=== PATIENT | female | born 1990 | race Caucasian/White ===

== ENCOUNTER 2019-12-03 11:15 | Outpatient (CLI) | payer OTHER, SELFPAY ==
[2019-12-03] VITALS (19 sets, daily range): BP systolic 128–167; BP diastolic 62–100; PULSE 64–78; O2SAT 99–100
[2019-12-03 12:23] LABS: Basophils Percent Auto 0.2 % (0.2-1.2); Eosinophils Absolute Auto 0.1 K/mm3 (0-0.3); Eosinophils Percent Auto 1.2 % (0-4.4); Hematocrit 32.7 % (37.0-47.0); Hemoglobin 10.7 g/dL (12.0-15.0); Immature Granulocyte Absolute 0.04 K/mm3 (0.00-0.031); Immature Granulocyte Percent A 0.4 % (0-0.5); Lymphocytes Percent Auto 15.1 % (18.3-44.2); Mean Corpuscular HGB Conc 32.7 g/dl (32-36); Mean Corpuscular Hemoglobin 28.5 pg (26-34); Mean Corpuscular Volume 87.2 fl (80-100); Mean Platelet Volume 11.4 fl (7.4-10.4); Monocytes Absolute Auto 0.7 K/mm3 (0.1-0.6); Monocytes Percent Auto 7.7 % (2.6-8.5); Neutrophils Percent Auto 75.4 % (45.5-73.1); Platelet Count Result 220 k/mm3 (150-375); Red Blood Count 3.75 M/mm3 (4.2-5.4); Red Cell Distribution Width 14.4 % (11.5-14.5); White Blood Count 9.3 K/mm3 (4.5-10.0)
[2019-12-03 12:31] LABS: Add Urine Microscopic? YES; Appearance Urine Cloudy (Clear); Bacteria Urine Trace /hpf; Bilirubin Urine Negative (Negative); Blood Urine Negative (Negative); Color Urine Yellow (Yellow); Glucose Urine UA Negative (Negative); Ketones Urine Negative (Negative); Leukocyte Esterase Ur 1+ LEU/UL (NEGATIVE); Mucus Urine Rare /lpf; Nitrate Urine Negative (Negative); Protein Urine 1+ mg/dL (Negative); Specific Grav Ur 1.014 (1.001-1.035); Squamous Epithelial Cell Urine Many /hpf (Few); Urobilinogen Urine Negative mg/dL (<2.0)
[2019-12-03] MEDS: LABETALOL HCL 100 MG TABLET 200 MG PO (12:40)
[2019-12-03 12:42] LABS: Alanine Aminotransferase 17 U/L (4-35); Albumin Level 3.5 g/dL (3.5-5.1); Alkaline Phosphatase 75 U/L (38-126); Aspartate Amino Transferase 20 U/L (14-36); Bilirubin,Total 0.1 mg/dL (0.2-1.3); Blood Urea Nitrogen 9 mg/dL (7-17); Calcium 9.6 mg/dL (8.4-10.2); Carbon Dioxide 25 mmol/L (22-30); Chloride 104 mmol/L (98-107); Estimated Glomerular Filt Rate > 60; Glucose 91 mg/dL (65-105); Potassium 3.7 mmol/L (3.4-5.0); Sodium 137 mmol/L (137-145); Uric Acid 5.9 mg/dL (2.5-7.5)
--- NOTE | 2019-12-03 14:30 | PC.NURSE ---
called Dr. Arias updated BP. order received for discharge with increased Labetalol dose to 200 mg every 6 hours. follow up in one week.
--- NOTE | 2019-12-03 14:45 | PC.NURSE ---
discharge instruction given for precaution of preeclampsia and 24 urine collection. pt verbalized understanding.
[2019-12-03 14:56] LABS: Creatinine Urine 99.3 mg/dL; Total Protein Urine Random 13 mg/dL
--- NOTE | 2019-12-03 15:05 | PC.NURSE ---
Addendum entered by Nelida Long RN 12/03/19 15:07: below note was entered for 12/03/2019 at 1230 Original Note: called Dr Arias reported elevated BP. no symptoms of preeclampsia order received for labetalol.
--- NOTE | 2019-12-03 15:07 | PC.NURSE ---
Addendum entered by Nelida Long RN 12/03/19 15:09: below note was entered for 12/03/2019 at 1320 Original Note: called Dr. Arias reported PIH lab result and updated BP. continue to monitor BP for one more hour
== END 2019-12-03 14:45 | disposition home or self-care (01) ==
LOC: ANHOBOP 11:25 → ANHOBPP 11:27
PROVIDERS: Visit Provider Obstetrics & Gynecology
DX: O13.9 Gestational [pregnancy-induced] hypertension without significant proteinuria, unspecified trimester (principal)
CPT/HCPCS: 36415; 59025; 80053; 81001; 82570; 84156; 84550; 85025; 87077; 87086; 87088; 87186; 99199; A9270

== ENCOUNTER 2019-12-04 15:05 | Outpatient (CLI) | payer OTHER, SELFPAY ==
[2019-12-04 15:24] VITALS: BMI 51.0
[2019-12-04 16:12] LABS: Collection Time Urine 24 HOURS
[2019-12-04 16:17] LABS: Total Volume 24 Hour Urine 3000 ml
[2019-12-04 16:19] LABS: Specific Gravity Ur 1.009
[2019-12-04 16:45] LABS: Patient Weight 270 Lbs
[2019-12-06 11:46] LABS: Total Protein Urine 24 Hr 291 MG/DAY (28-141); Total Protein Urine Random 9.7 mg/dL (0.0-11.9)
== END 2019-12-04 15:06 | disposition home or self-care (01) ==
LOC: ANHOBOP 15:07
PROVIDERS: Visit Provider Obstetrics & Gynecology
DX: O13.9 Gestational [pregnancy-induced] hypertension without significant proteinuria, unspecified trimester (principal)
CPT/HCPCS: 81050; 82575; 84156

== ENCOUNTER 2019-12-17 13:46 | Inpatient (IN) | payer OTHER, SELFPAY ==
[2019-12-17] VITALS (33 sets, daily range): BP systolic 137–179; BP diastolic 68–110; PULSE 66–91; TEMP 37.3–37.8; BMI 50.8
[2019-12-17 15:10] LABS: Basophils Percent Auto 0.2 % (0.2-1.2); Eosinophils Absolute Auto 0.2 K/mm3 (0-0.3); Eosinophils Percent Auto 1.4 % (0-4.4); Hematocrit 33.6 % (37.0-47.0); Hemoglobin 11.1 g/dL (12.0-15.0); Immature Granulocyte Absolute 0.11 K/mm3 (0.00-0.031); Immature Granulocyte Percent A 1.1 % (0-0.5); Lymphocytes Absolute Auto 1.79 K/mm3 (0.9-3.2); Lymphocytes Percent Auto 17.2 % (18.3-44.2); Mean Corpuscular Hemoglobin 28.9 pg (26-34); Mean Corpuscular Volume 87.5 fl (80-100); Mean Platelet Volume 12.6 fl (7.4-10.4); Monocytes Absolute Auto 0.8 K/mm3 (0.1-0.6); Monocytes Percent Auto 7.5 % (2.6-8.5); Neutrophils Absolute Auto 7.6 K/mm3 (1.3-6.7); Neutrophils Percent Auto 72.6 % (45.5-73.1); Platelet Count Result 193 k/mm3 (150-375); Red Blood Count 3.84 M/mm3 (4.2-5.4); White Blood Count 10.4 K/mm3 (4.5-10.0)
[2019-12-17 15:13] LABS: Add Urine Microscopic? YES; Appearance Urine Clear (Clear); Bacteria Urine Trace /hpf; Bilirubin Urine Negative (Negative); Blood Urine Negative (Negative); Color Urine Straw (Yellow); Glucose Urine UA Negative (Negative); Ketones Urine Negative (Negative); Leukocyte Esterase Ur Trace LEU/UL (NEGATIVE); Nitrate Urine Negative (Negative); Protein Urine 1+ mg/dL (Negative); RBC Urine 0-2 /hpf (0-2); Squamous Epithelial Cell Urine Few /hpf (Few); Urobilinogen Urine Negative mg/dL (<2.0)
[2019-12-17 15:17] LABS: Creatinine Urine 34.6 mg/dL; Total Protein Urine Random 22 mg/dL
[2019-12-17 15:19] LABS: Alanine Aminotransferase 15 U/L (4-35); Albumin Level 3.7 g/dL (3.5-5.1); Alkaline Phosphatase 94 U/L (38-126); Aspartate Amino Transferase 21 U/L (14-36); Bilirubin,Total 0.3 mg/dL (0.2-1.3); Blood Urea Nitrogen 13 mg/dL (7-17); Carbon Dioxide 25 mmol/L (22-30); Chloride 103 mmol/L (98-107); Estimated Glomerular Filt Rate > 60; Glucose 80 mg/dL (65-105); Potassium 4.3 mmol/L (3.4-5.0); Sodium 134 mmol/L (137-145); Uric Acid 5.6 mg/dL (2.5-7.5)
[2019-12-17] MEDS: NIFEdipine 10 MG CAPSULE PO (16:05)
[2019-12-17] MEDS: LABETALOL HCL 100 MG TABLET 200 MG PO ×2 (16:14→21:57)
--- NOTE | 2019-12-17 16:56 | PCDIET ---
called Dr. Arias and reported protein creatinine ratio. order received for cervidil induction.
--- NOTE | 2019-12-17 16:59 | PC.NURSE ---
called Dr. Arias notified pt elevated BP. reported lab result. order received for medication and stay over for observation.
[2019-12-17 18:40] LABS: Glucose Point of Care 100 (65-105)
[2019-12-17] MEDS: DINOPROSTONE 10 MG VAG INSERT VAGINAL ×2 (18:52→22:26)
[2019-12-17] MEDS: ACETAMINOPHEN 500 MG TABLET 1000 MG PO (18:52)
[2019-12-17] MEDS: LACTATED RINGERS 1,000 ML 125 ML IV CONT (18:53)
[2019-12-17] MEDS: NIFEdipine 30 MG TAB.ER.24 PO (20:54)
[2019-12-17] MEDS: INSULIN HUMAN NPH (*BKC) 100 UNITS/ML 30 UNITS SUB-Q (21:58)
[2019-12-17 22:38] LABS: Amphetamine Screen Urine Negative (Negative); Barbiturate Screen Urine Negative (Negative); Benzodiazepines Screen Urine Negative (Negative); Cannabinoid Screen Urine Negative (Negative); Cocaine Screen Urine Negative (Negative); Methadone Screen Urine Negative (Negative); Opiate Screen Urine Negative (Negative); Phencyclidine Screen Urine Negative (Negative)
[2019-12-18] VITALS (183 sets, daily range): BP systolic 98–173; BP diastolic 28–118; PULSE 61–109; TEMP 36.7–37.3; O2SAT 94–100
[2019-12-18] MEDS: LABETALOL HCL 100 MG TABLET 200 MG PO ×4 (04:25→21:47)
[2019-12-18] MEDS: AMPICILLIN 2 GM/NS 100 ML 2 GM/100 ML BAG IVPB (04:25)
[2019-12-18] MEDS: ACETAMINOPHEN 325 MG TABLET 650 MG PO (05:25)
--- NOTE | 2019-12-18 06:15 | WPDANESEPP ---
Anes - Eval Pre Procedure Procedure: Labor epidural Date/Time: 12/18/19 06:15 Surgeon: sourav Preop Diagnosis: pain during labor Pre Op Diagnosis: Induction of Labor Patient Data Age: 29 Gender: F Height: 1.55 m Weight: 122 kg Last Vital Signs Temp 36.7 C 12/18/19 06:03 Pulse 77 12/18/19 04:26 BP 145/97 H 12/18/19 04:26 Allergies Allergy/AdvReac Type Severity Reaction Status Date / Time No Known Allergies Allergy Verified 12/17/19 16:03 Home Medications Medication Instructions Recorded Confirmed Type PNV cmb#95-ferrous fumarate-FA 1 tablet PO DAILY 12/17/19 12/17/19 History [] aspirin 81 mg PO DAILY 12/17/19 12/17/19 History calcium carbonate [Calcium 500] 500 mg PO DAILY 12/17/19 12/17/19 History ergocalciferol (vitamin D2) 50,000 unit 2XW 12/17/19 12/17/19 History [Vitamin D2] insulin NPH isoph U-100 human 4 unit SUBCUT DAILY 12/17/19 12/17/19 History [Novolin N NPH U-100 Insulin] labetalol 200 mg PO Q6H 12/17/19 12/17/19 History Laboratory Tests 12/17/19 12/17/19 12/17/19 14:52 14:52 14:53 WBC 10.4 K/mm3 H K/mm3 (4.5-10.0) RBC 3.84 M/mm3 L M/mm3 (4.2-5.4) Hgb 11.1 g/dL L g/dL (12.0-15.0) Hct 33.6 % L % (37.0-47.0) MCV 87.5 fl fl (80-100) MCH 28.9 pg pg (26-34) MCHC 33.0 g/dl g/dl (32-36) RDW 14.0 % % (11.5-14.5) Plt Count 193 k/mm3 k/mm3 (150-375) MPV 12.6 fl H fl (7.4-10.4) Immature Gran % (Auto) 1.1 % H % (0-0.5) Neut % (Auto) 72.6 % % (45.5-73.1) Lymph % (Auto) 17.2 % L % (18.3-44.2) [place] % (Auto) 7.5 % % (2.6-8.5) Eos % (Auto) 1.4 % % (0-4.4) Baso % (Auto) 0.2 % % (0.2-1.2) Lymph # (Auto) 1.79 K/mm3 K/mm3 (0.9-3.2) [place] # (Auto) 0.8 K/mm3 H K/mm3 (0.1-0.6) Eos # (Auto) 0.2 K/mm3 K/mm3 (0-0.3) Baso # (Auto) 0.0 K/mm3 K/mm3 (0.0-0.1) Abs Immat Gran (auto) 0.11 K/mm3 H K/mm3 (0.00-0.031) Absolute Neuts (auto) 7.6 K/mm3 H K/mm3 (1.3-6.7) Absolute Nucleated RBC 0.0 K/mm3 K/mm3 (0.0-0.012) Nucleated RBC % 0.0 % % (0.0-0.2) Sodium 134 mmol/L L mmol/L (137-145) Potassium 4.3 mmol/L mmol/L (3.4-5.0) Chloride 103 mmol/L mmol/L (98-107) Carbon Dioxide 25 mmol/L mmol/L (22-30) BUN 13 mg/dL mg/dL (7-17) Creatinine 0.80 mg/dL mg/dL (0.7-1.0) Estim Creat Clear Calc Not Reportable Estimated GFR > 60 (59 - ) Glucose 80 mg/dL mg/dL (65-105) POC Capillary Glucose Uric Acid 5.6 mg/dL mg/dL (2.5-7.5) Calcium 10.0 mg/dL mg/dL (8.4-10.2) Total Bilirubin 0.3 mg/dL mg/dL (0.2-1.3) AST 21 U/L U/L (14-36) ALT 15 U/L U/L (4-35) Alkaline Phosphatase 94 U/L U/L (38-126) Total Protein 7.0 g/dL g/dL (6.3-8.2) Albumin 3.7 g/dL g/dL (3.5-5.1) Urine Color Straw (Yellow) Urine Appearance Clear (Clear) Urine pH 9.0 (5.0-9.0) Ur Specific [place] 1.010 (1.001-1.035) Urine Protein 1+ mg/dL H mg/dL (Negative) Urine Glucose (UA) Negative mg/dL mg/dL (Negative) Urine Ketones Negative mg/dL mg/dL (Negative) Ur Blood (Man) Negative (Negative) Urine Nitrate Negative (Negative) Urine Bilirubin Negative (Negative) Urine Urobilinogen Negative mg/dL mg/dL (<2.0) Ur Leukocyte Esterase Trace MYLENE/UL H MYLENE/UL (NEGATIVE) Urine RBC 0-2 /hpf /hpf (0-2) Urine WBC 4-6 /hpf H /hpf (0-3) Ur Squamous Epith Cells Few /hpf /hpf (Few) Urine Bacteria Trace /hpf /hpf U Random Total Protein Urine Creatinine Urine Opiates S
[2019-12-18] MEDS: OXYTOCIN 30 UNITS/NS 500 ML 30 UNITS/500 ML BAG IV CONT (07:44)
[2019-12-18 07:52] LABS: Glucose Point of Care 69 (65-105)
[2019-12-18 07:53] LABS: Rapid Plasma Reagin Non-Reactive (NonReactive)
--- NOTE | 2019-12-18 08:23 | WPDOBADMIT ---
Obstetrics - Admit Note Admission Note: Patient sent to Labor and delivery with BP of 200/ 110. On arrival, bps ranged from 150-170s/90-110 patient recevied Procardia 10 mg po x 1 with improvement of BPs PIH labs normal. 24 hour urine 291 two weeks ago and protein creatinine ratio 0.68 with poor Ob history. Proceed with IOL s/p cervidil and AROM clear fluid. vertex. record reviewed. No pertinent additions to the history and/or any subsequent changes in the physical findings that are not consistent with the expected course of the were found. Additions to the history and/or subsequent changes in the physical findings follow. None.
[2019-12-18] MEDS: NIFEdipine 30 MG TAB.ER.24 PO ×2 (09:00→20:56)
[2019-12-18] MEDS: AMPICILLIN 1 GM/NS 50 ML 1 GM/50 ML BAG IVPB ×4 (09:00→17:47)
[2019-12-18 12:06] LABS: Glucose Point of Care 76 (65-105)
[2019-12-18] MEDS: LACTATED RINGERS 1,000 ML 125 ML IV CONT (12:35)
[2019-12-18] MEDS: SODIUM CHLORIDE 0.9% IV 300 ML 600 ML I-UTERINE (14:54)
[2019-12-18 15:41] LABS: Glucose Point of Care 71 (65-105)
[2019-12-18 17:51] LABS: Glucose Point of Care 65 (65-105)
--- NOTE | 2019-12-18 19:47 | PM.OBPRVD ---
OB - Delivery Note Procedure Delivery date: 12/18/19 events: Gestational Diabetes, Pre-Eclampsia (CHTN) and Labor Induction Intrapartal events: None Induction method: other (cervidil) Delivery monitor: internal FHT and internal uterine Route of delivery: Episiotomy description: None Laceration description: None Specimen: Yes (cord blood, gases, placenta) Estimated blood loss (mL): 150 Anesthesia type: Epidural Disposition: floor Complications: None Baby Weeks of gestation at delivery: 36 Weight (pounds): 5 Weight (ounces): 4 cord vessel description: 3 Vessels and Nuchal Cord (x 1) score one minute: 8 score five minutes: 8
[2019-12-18 19:53] LABS: Glucose Point of Care 80 (65-105)
[2019-12-18] MEDS: MISOPROSTOL 200 MCG TABLET 1000 MCG (20:03)
[2019-12-18] MEDS: SODIUM CHLORIDE 0.9% IV 1,000 ML 150 ML I-UTERINE (20:04)
[2019-12-18] MEDS: OXYTOCIN 30 UNITS/NS 500 ML 30 UNITS/500 ML BAG 125 UNITS IV CONT (20:08)
[2019-12-18] MEDS: IBUPROFEN 600 MG TABLET PO (21:28)
[2019-12-18] MEDS: BENZOCAINE 20% AER SPR (*SP) 56 GM CAN 1 SPRAY TOPICAL (21:29)
[2019-12-18] MEDS: WITCH HAZEL 40 PADS 1 PAD TOPICAL (21:29)
--- NOTE | 2019-12-18 22:07 | OBPPTRN ---
Patient transferred to post room # via ( ). Support person present. Oriented to unit, room, information board, rooming in, admission packet and security measures. Patient verbalizes understanding.
--- NOTE | 2019-12-18 22:07 | OBPPTRN ---
Patient transferred to post room #281 via wheelchair - did not come up with patient due to being in level 2 care. Support person present. Oriented to unit, room, information board, rooming in, admission packet and security measures. Patient verbalizes understanding.
[2019-12-19] VITALS (8 sets, daily range): BP systolic 113–140; BP diastolic 64–87; PULSE 68–88; RESP 18; TEMP 36.8–37.2; O2SAT 98
[2019-12-19] MEDS: LABETALOL HCL 100 MG TABLET 200 MG PO ×4 (04:16→23:58)
[2019-12-19 05:24] LABS: Hematocrit 30.8 % (37.0-47.0); Hemoglobin 10.2 g/dL (12.0-15.0)
[2019-12-19] MEDS: NIFEdipine 30 MG TAB.ER.24 PO ×2 (10:05→21:17)
--- NOTE | 2019-12-19 12:24 | PM.OBPNVD ---
OB - PN: Subj Subjective Date/time seen: 12/19/19 12:24 doing okay no complaints baby at [facility] OB - PN: Obj Data Labs CBC & Chem 7: 12/19/19 04:26 12/17/19 14:52 Labs: Laboratory Results - last 24 hr 12/18/19 12/18/19 12/18/19 15:38 17:46 19:27 Hgb Hct POC Capillary Glucose 71 65 80 12/19/19 04:26 Hgb 10.2 L Hct 30.8 L POC Capillary Glucose OB - PN A/P Assessment and Plan (1) Gestational diabetes: Code(s): O24.419 - Gestational diabetes mellitus in , unspecified control Status: Acute (2) Morbid obesity with BMI of 50.0-59.9, adult: Code(s): E66.01 - Morbid (severe) obesity due to excess calories; Z68.43 - Body mass index (BMI) 50.0-59.9, adult Status: Acute (3) (normal spontaneous vaginal delivery): Code(s): O80 - Encounter for full-term uncomplicated delivery Status: Acute (4) Chronic hypertension with superimposed pre-eclampsia: Code(s): O11.9 - Pre-existing hypertension with pre-eclampsia, unspecified trimester Status: Acute Assessment and Plan: desires tubal ligation. continue with pp care. Time Spent With Patient Time: Total time spent is greater than 50% in coordination of care (as documented) at patient's floor/unit and/or counseling patient:
[2019-12-19] MEDS: IBUPROFEN 600 MG TABLET PO (12:53)
[2019-12-20] VITALS (11 sets, daily range): BP systolic 120–140; BP diastolic 72–98; PULSE 69–81; RESP 16–22; TEMP 36.1–37.5; O2SAT 95–100
[2019-12-20] MEDS: LABETALOL HCL 100 MG TABLET 200 MG PO ×3 (04:44→16:21)
[2019-12-20] MEDS: NIFEdipine 30 MG TAB.ER.24 PO (10:02)
--- NOTE | 2019-12-20 12:00 | PC.NURSE ---
Patient received instructions on viewing the discharge video Mother & Baby Care, The First Two Weeks online. Patient was given the opportunity and encouraged to ask questions. Patient verbalized understanding of information shared and has been given the mother/baby guide for home reference.
--- NOTE | 2019-12-20 13:01 | PC.NURSE ---
Patient to pre-op per bed for tubal ligation.
--- NOTE | 2019-12-20 13:23 | WPDANESEPPF ---
Anes - Initial Pre Proc Eval Procedure: Operation Date: 12/20/19 14:30 Proposed Procedures p Post- Tubal Ligation - Alireza Arias MD Date/Time: 12/20/19 13:23 Surgeon: Alireza Arias MD Pre Op Diagnosis: Induction of Labor Patient Data Age: 29 Gender: F Height: 5 ft 1 in Weight: 122 kg Last Vital Signs Temp 37.5 C 12/20/19 13:17 Pulse 72 12/20/19 13:17 Resp 16 12/20/19 13:17 BP 129/83 12/20/19 13:17 Pulse Ox 100 12/20/19 13:17 Allergies Allergy/AdvReac Type Severity Reaction Status Date / Time No Known Allergies Allergy Verified 12/17/19 16:03 Home Medications Medication Instructions Recorded Confirmed Type PNV cmb#95-ferrous fumarate-FA 1 tablet PO DAILY 12/17/19 12/17/19 History [] aspirin 81 mg PO DAILY 12/17/19 12/17/19 History calcium carbonate [Calcium 500] 500 mg PO DAILY 12/17/19 12/17/19 History ergocalciferol (vitamin D2) 50,000 unit 2XW 12/17/19 12/17/19 History [Vitamin D2] insulin NPH isoph U-100 human 4 unit SUBCUT DAILY 12/17/19 12/17/19 History [Novolin N NPH U-100 Insulin] labetalol 200 mg PO Q6H 12/17/19 12/17/19 History Patient hx anesthesia problems: none Family hx anesthesia problems: none PMFSH Past Medical History Medical History Chronic hypertension with superimposed pre-eclampsia Gestational diabetes HTN (hypertension) Morbid obesity with BMI of 50.0-59.9, adult (normal spontaneous vaginal delivery) Preeclampsia Spontaneous Surgical History Surgical History Hx of appendectomy Hx of cholecystectomy Family History Family History Father No problems noted. Grandparent No problems noted. Grandparent Breast cancer Factor 5 Leiden mutation, heterozygous Hypertension Social History Social History Smoking status: Never smoker Tobacco type: cigarettes Second hand tobacco smoke exposure: Yes Substance use: former Spiritual care concerns: No Anes - Eval Final PreProcedure Day of Procedure 12/20/19 13:23 Patient weight: super morbidly obese Heart: regular rate and rhythm Lungs: clear to auscultation Airway: Mallampati scale class 1 Neurological: alert and oriented Last oral intake: >/= 8 hours ASA classification: III Emergent: no Anesthetic plan: proceed Anesthesia type and monitoring: general ETT and standard monitoring Informed Consent: The patient's anesthetic plan and its attendant risks and benefits were discussed with the patient/family/POA. Questions were solicited and answers provided to the satisfaction of the patient/family/POA.
[2019-12-20] MEDS: LACTATED RINGERS 1,000 ML 30 ML IV CONT (13:24)
--- NOTE | 2019-12-20 13:51 | PM.IMHP ---
H&P: HPI History of Present Illness Chief complaint: Induction of Labor Narrative: Ju Abraham is a 29 year old female s/p desires permanent sterilization. [facility] Past Medical History Medical History Chronic hypertension with superimposed pre-eclampsia Gestational diabetes HTN (hypertension) Morbid obesity with BMI of 50.0-59.9, adult (normal spontaneous vaginal delivery) Preeclampsia Spontaneous Surgical History Surgical History Hx of appendectomy Hx of cholecystectomy Family History Family History Father No problems noted. Grandparent No problems noted. Grandparent Breast cancer Factor 5 Leiden mutation, heterozygous Hypertension Social History Social History Smoking status: Never smoker Tobacco type: cigarettes Second hand tobacco smoke exposure: Yes Substance use: former Spiritual care concerns: No Meds Home Medications and Allergies Home Medications Medication Instructions Recorded Confirmed Type PNV cmb#95-ferrous fumarate-FA 1 tablet PO DAILY 12/17/19 12/17/19 History [] aspirin 81 mg PO DAILY 12/17/19 12/17/19 History calcium carbonate [Calcium 500] 500 mg PO DAILY 12/17/19 12/17/19 History ergocalciferol (vitamin D2) 50,000 unit 2XW 12/17/19 12/17/19 History [Vitamin D2] insulin NPH isoph U-100 human 4 unit SUBCUT DAILY 12/17/19 12/17/19 History [Novolin N NPH U-100 Insulin] labetalol 200 mg PO Q6H 12/17/19 12/17/19 History Allergies Allergy/AdvReac Type Severity Reaction Status Date / Time No Known Allergies Allergy Verified 12/17/19 16:03 Vital Signs Vital Signs - 24 hr 12/19/19 17:41 12/19/19 19:20 12/19/19 23:58 Temperature 36.8 C Pulse Rate 78 72 71 Respiratory Rate 18 Blood Pressure 140/82 127/74 Pulse Oximetry 12/20/19 00:00 12/20/19 04:44 12/20/19 04:47 Temperature Pulse Rate 79 Respiratory Rate Blood Pressure 135/80 139/98 H Pulse Oximetry 12/20/19 08:05 12/20/19 13:17 Temperature 37.0 C 37.5 C Pulse Rate 80 72 Respiratory Rate 16 16 Blood Pressure 130/87 129/83 Pulse Oximetry 98 100 Exam Resp: Effort & Inspection: normal respiratory effort GI: Inspection: normal to inspection and Pannus present : Other: ff below umbilicus Assessment and Plan Assessment and plan (1) Sterilization: Code(s): Z30.2 - Encounter for sterilization Status: Acute Assessment and Plan: scheduled for a tubal ligation. desires permanent sterilization. Risk and benefits reviewed in detail including failure rate.
--- NOTE | 2019-12-20 16:05 | PC.NURSE ---
Pt returned to floor from PACU per bed.
[2019-12-20] MEDS: IBUPROFEN 600 MG TABLET PO (16:22)
[2019-12-21 08:26] VITALS: BP 136/77; PULSE 69; RESP 22; TEMP 36.9
--- NOTE | 2019-12-21 23:49 | OP_ITS ---
DATE OF PROCEDURE: 12/20/2019 PREOPERATIVE DIAGNOSIS: Desires permanent sterilization. POSTOPERATIVE DIAGNOSIS: Desires permanent sterilization. PROCEDURE PERFORMED: tubal ligation. ANESTHESIA: Spinal. COMPLICATIONS: None. ESTIMATED BLOOD LOSS: 10 cc. FINDINGS: Grossly normal tubes. DESCRIPTION OF PROCEDURE: The patient was taken to operating room, placed in a supine position. Prepped and draped in normal sterile fashion. An abdominal incision was made approximately 3 cm, carried down to the underlying layer of fascia. The fascial incision was then extended bilaterally entering the fascia and peritoneum. [place] retractors were used to check bowel from the fallopian tube. The right fallopian tube was grasped with [place]'s and carried through to the fimbriated end and transected and suture ligated with 0 chromic suture. Attention was then turned to the left tube, which was transected and suture ligated with a chromic suture. Hemostasis was assured. The fascia was then closed with 0-Vicryl suture in a running fashion. Subcutaneous tissue was irrigated. Hemostasis was assured. Skin was closed with 4-0 Vicryl with subcutaneous stitch. This patient tolerated the procedure well. Sponge, lap, and needle counts were correct x2. D I MT: Ursula
--- NOTE | 2020-01-01 09:59 | PM.OBDSVD ---
DS: Admitting Diagnosis Admitting Diagnosis Admitting Diagnosis: Encounter for supervision of normal , unspecified, third trimester DS: Discharge Diagnosis Discharge Diagnosis (1) Sterilization: Code(s): Z30.2 - Encounter for sterilization Status: Acute (2) Chronic hypertension with superimposed pre-eclampsia: Code(s): O11.9 - Pre-existing hypertension with pre-eclampsia, unspecified trimester Status: Acute (3) (normal spontaneous vaginal delivery): Code(s): O80 - Encounter for full-term uncomplicated delivery Status: Acute (4) Gestational diabetes: Code(s): O24.419 - Gestational diabetes mellitus in , unspecified control Status: Acute (5) Morbid obesity with BMI of 50.0-59.9, adult: Code(s): E66.01 - Morbid (severe) obesity due to excess calories; Z68.43 - Body mass index (BMI) 50.0-59.9, adult Status: Acute OB - DS: Summary OB Procedures : NST OB Procedures Intrapartum: Spontaneous Vag Delivery OB Procedures: : P.P. tubal ligation Peripartum Data Procedures: Procedures Operation Date: 12/20/19 14:30 Actual Procedures Side Surgeon p Post- Tubal Ligation Bilateral Alireza Arias MD Time Spent with Patient Time attestation: Total time spent providing and/or coordinating discharge services: Exam GI: Inspection: incision and Pannus present GI Palp: Yes Soft to palpation DS: Data Data Completed and Pending Completed studies during hospitalization: Pending at discharge 12/18/19 19:40 Surgical [PTH] Routine 12/20/19 14:44 Surgical [PTH] Routine Surgical [PTH] Routine Discharge Plan Discharge Attending physician on discharge: Alireza Arias Consulting providers: Jac Velásquez Discharging Clinician: Alireza Arias Patient Disposition: Home, Self-Care Activity: may shower, may drive after 2 weeks and pelvic rest Diet: regular Discharge Instructions: Education: Mom and Baby Guide and Preeclampsia Handout Given to: Mother Follow-Up: Call your delivering provider's office for an appointment. Mom should come to the [facility] for the follow-up appointment. Appointment Date/Time: December 21, 2019 at 8:30 am What to expect at your follow-up visit: Blood Pressure Check, Physical Assessment Call [phone] if you are unable to keep your appointment time. BREAST CARE: 1. Wear a snug supportive bra. 2. For engorgement discomfort: Bottle Feeding: A. May apply ice packs ABDOMINAL INCISION: (if applicable) 1. Allow incision to air dry 2. Do NOT use lotions for powders on your incision 3. When showering, allow soap and water to run over the incision, but do not wash incision EPISIOTOMY/PERINEAL CARE: 1. Until bleeding stops, use your aleja bottle after urinating 2. Change your pad frequently throughout the day 3. You may take sitz baths several times a day (fill your bathtub with warm water and soak for 20 minutes.) Do NOT bathe in the water 4. No tub baths until seen by your physician - You may shower ACTIVITY: 1. Rest as much as possible. 2. Do not exercise or lift anything heavier than your baby (such as laundry or other children.) 3. Avoid stairs or driving as much as possible. 4. Do not put anything into the vagina. No douching, tampons, or sexual activity until seen by physician. NOTIFY PHYSICIAN IF YOU HAVE ANY QUESTIONS OR IF ANY OF THE FOLLOWING SYMPTOMS OCCUR: 1. If your incision becomes red, swollen, or more painful than what you have experienced in the hospital. 2. If your vaginal bleeding becomes foul smelling. 3. If your vaginal bleeding becomes more heavy than a period or if your bleeding changes from pink to bright red. However, you may pass an occasional walnut-sized clot once or twice for the first week . 4. If you experience a sharp, shooting pain in you calves. 5. If you discover
== END 2019-12-20 19:13 | disposition home or self-care (01) | DRG 798 ==
LOC: ANHOBOP 13:53 → ANHOBPP 17:18 → ANHLDR 19:35 → ANHOBOP 19:35 → ANHLDR 19:44 → ANHOB2 12-18 22:10
PROVIDERS: Obstetrics & Gynecology; Admitting Provider Obstetrics & Gynecology; Visit Provider Obstetrics & Gynecology
PROC: 0UB70ZZ Excision of Bilateral Fallopian Tubes, Open Approach (ICD-10-PCS; CPT 58605; principal; 2019-12-20 14:30)
DX: O11.4 Pre-existing hypertension with pre-eclampsia, complicating childbirth (principal); Z37.0 Single live birth; Z3A.36 36 weeks gestation of pregnancy; O99.214 Obesity complicating childbirth; E66.9 Obesity, unspecified; O24.429 Gestational diabetes mellitus in childbirth, unspecified control; O69.81X0 Labor and delivery complicated by cord around neck, without compression, not applicable or unspecified; Z30.2 Encounter for sterilization
CPT/HCPCS: 36415; 59025; 80053; 80307; 81001; 82570; 84156; 84550; 85014; 85018; 85025; 86592; 86850; 86900; 86901; 87077; 87086; 87088; 87186; 88302; 88307; 99199; A9270; J0290; J0330; J1100; J1815; J2250; J2405; J2590; J2704; J2795; J3010; J7030; J7120

== ENCOUNTER 2022-09-07 04:31 | Emergency (ER) | payer OTHER, SELFPAY ==
[2022-09-07] VITALS (15 sets, daily range): BP systolic 152–200; BP diastolic 82–122; PULSE 78–99; RESP 16–18; TEMP 36.7; O2SAT 97–100
--- NOTE | ~2022-09-07 | XR_ITS ---
[XR ribs LT 2V w CXR 2V ] INDICATION: Left rib pain TECHNIQUE: Frontal projection of the upper left ribs, frontal projection of the lower left ribs, obli que projection of all the left ribs, frontal inspiratory chest x-ray for interpretation. FINDINGS: There are no displaced rib fractures identified. There are no soft tissue abnormality see n. The lungs are clear. IMPRESSION: 1:No acute displaced rib fractures. Reviewed, dictated and finalized at location A. [facility]
--- NOTE | 2022-09-07 06:47 | PC.NURSE ---
Pt c/o pain under my ribs that has been intermittent for months but has been worse recently. Pain is worse with deep breathing. She denies any injury or repetitive motion. She takes ibuprofen for pain which helps.
--- NOTE | 2022-09-07 07:15 | PC.NURSE ---
Patient report received from MARIZOL Kim. All questions answered and care of patient assumed.
--- NOTE | 2022-09-07 07:34 | ED.GENADULT ---
HPI - General Adult General Chief complaint: Unspecified Stated complaint: rib pain Time Seen by Provider: 09/07/22 06:54 History of Present Illness HPI narrative: 32-year-old female presenting to the emergency department for evaluation of worsening left rib pain. Patient states this has been ongoing for the last few months. Patient denies any recent falls or injuries. Patient states its a sharp left-sided lower rib pain that is worsened with inspiration and with movement. Patient denies any associated shortness of breath. Patient denies any prior history of PE or DVT. Patient is a smoker. Related Data Home Medications Medication Instructions Recorded Confirmed aspirin 81 mg chewable tablet 81 mg PO DAILY 12/17/19 12/17/19 ergocalciferol (vitamin D2) 1,250 50,000 unit 2XW 12/17/19 12/17/19 mcg (50,000 unit) capsule (Vitamin D2) labetalol 200 mg tablet 200 mg PO Q6H 12/17/19 12/17/19 vit no.95-ferrous 1 tablet PO DAILY 12/17/19 12/17/19 fumarate 28 mg-folic acid 800 mcg tablet () Allergies Allergy/AdvReac Type Severity Reaction Status Date / Time No Known Allergies Allergy Verified 12/17/19 16:03 Review of Systems Review of Systems: CONSTITUTIONAL: Denies fever, chills, or sweats. EYES: Denies visual changes, redness, or discharge. ENT: Denies rhinorrhea, congestion, sore throat, or otalgia. CARDIOVASCULAR: See HPI RESPIRATORY: Denies cough or dyspnea. GASTROINTESTINAL: Denies abdominal pain, nausea, vomiting, or diarrhea. GENITOURINARY: Denies dysuria or hematuria. SKIN: Denies rash or itching. MUSCULOSKELETAL: Denies back pain, joint pain, or myalgia. NEUROLOGIC: Denies headache, numbness, or weakness. COUNT INCLUDES THE [facility] Past Medical History Medical History (Updated 09/07/22 @ 09:46 by Mario Hale MD) Chronic hypertension with superimposed pre-eclampsia Gestational diabetes HTN (hypertension) Morbid obesity with BMI of 50.0-59.9, adult (normal spontaneous vaginal delivery) Preeclampsia Spontaneous Sterilization Surgical History Surgical History Hx of appendectomy Hx of cholecystectomy Family History Family History Father No problems noted. Grandparent No problems noted. Grandparent Breast cancer Factor 5 Leiden mutation, heterozygous Hypertension Social History Social History Smoking status: Never smoker Tobacco type: cigarettes Second hand tobacco smoke exposure: Yes Substance use: former Spiritual care concerns: No Exam Narrative: APPEARANCE: Well appearing, no pain, no distress, well-nourished. HEAD: normocephalic, atraumatic. EYES: PERRLA/EOMI, conjunctivae clear. NOSE: Normal no drainage NECK: Supple. No adenopathy, no masses. RESPIRATORY: Airway patent, respirations nonlabored. Clear to auscultation bilaterally, no rales, rhonchi, wheezing. CARDIOVASCULAR: Regular rate and rhythm without murmurs rubs or gallops. Chest: Reproducible left lower and lateral rib tenderness to palpation. ABDOMINAL: Soft, nontender, nondistended, normal bowel sounds. No left upper quadrant or left CVA tenderness to palpation MUSCULOSKELETAL: Moves all extremities. Strength/ROM intact, No edema, No calf tenderness. NEURO: Alert. Cranial nerves II through XII intact. Grossly intact SKIN: Warm, dry. Normal Color Course Course Emergency Course: Patient describes left sided rib pain, symptoms been ongoing for the past 2 months. D-dimer will be ordered to evaluate for pulmonary embolism. In response to the D-dimer level a chest x-ray versus CTA PE study will be ordered. Other differentials being considered are pneumonia, pneumothorax, musculoskeletal injury. While her work-up is undergoing patient was going to be treated with Flexeril and with IV Tylenol. Patient was updated on the p
[2022-09-07] MEDS: CYCLOBENZAPRINE HCL 10 MG TABLET PO (07:58)
[2022-09-07 08:14] LABS: Basophils Absolute Auto 0.1 K/mm3 (0.0-0.1); Basophils Percent Auto 0.6 % (0.2-1.2); Eosinophils Absolute Auto 0.5 K/mm3 (0-0.3); Eosinophils Percent Auto 4.5 % (0-4.4); Hematocrit 40.2 % (37.0-47.0); Immature Granulocyte Absolute 0.04 K/mm3 (0.00-0.031); Immature Granulocyte Percent A 0.3 % (0-0.5); Lymphocytes Absolute Auto 2.65 K/mm3 (0.9-3.2); Lymphocytes Percent Auto 22.6 % (18.3-44.2); Mean Corpuscular HGB Conc 32.3 g/dl (32-36); Mean Corpuscular Hemoglobin 27.1 pg (26-34); Mean Corpuscular Volume 83.9 fl (80-100); Mean Platelet Volume 11.3 fl (7.4-10.4); Monocytes Absolute Auto 0.9 K/mm3 (0.1-0.6); Monocytes Percent Auto 7.3 % (2.6-8.5); Neutrophils Absolute Auto 7.6 K/mm3 (1.3-6.7); Neutrophils Percent Auto 64.7 % (45.5-73.1); Platelet Count Result 266 k/mm3 (150-375); Red Blood Count 4.79 M/mm3 (4.2-5.4); Red Cell Distribution Width 13.8 % (11.5-14.5); White Blood Count 11.7 K/mm3 (4.5-10.0)
[2022-09-07 08:24] LABS: Alanine Aminotransferase 27 U/L (6-35); Albumin Level 4.1 g/dL (3.5-5.1); Alkaline Phosphatase 75 U/L (38-126); Anion Gap 5 mmol/L (8-16); Aspartate Amino Transferase 29 U/L (14-36); Bilirubin,Total 0.3 mg/dL (0.2-1.3); Blood Urea Nitrogen 20 mg/dL (7-17); Calcium 8.7 mg/dL (8.4-10.2); Carbon Dioxide 28 mmol/L (22-30); Chloride 102 mmol/L (98-107); Estimated CRCL calculation 82 ml/min; Estimated Glomerular Filt Rate > 60; Glucose 95 mg/dL (65-110); Potassium 3.9 mmol/L (3.4-5.0); Sodium 135 mmol/L (137-145)
[2022-09-07 08:41] LABS: D Dimer 0.42 ug/mL (<0.48)
[2022-09-07] MEDS: LABETALOL HCL 100 MG TABLET PO (08:57)
== END 2022-09-07 10:01 | disposition home or self-care (01) ==
PROVIDERS: Emergency Provider Emergency Medicine; PCP Family Medicine
DX: R07.81 Pleurodynia (principal); I10 Essential (primary) hypertension; F17.210 Nicotine dependence, cigarettes, uncomplicated
CPT/HCPCS: 36415; 71046; 71100; 80053; 81025; 85025; 85380; 96365; 99284; A9270; J0131